=== PATIENT | female | born 1985 | race Caucasian/White ===

== ENCOUNTER → 2018-05-22 | Outpatient (CLI) | payer BC ==
[2018-05-22 13:08] LABS: Glucose 3 Hour, Gest 152 mg/dL
== END ==
LOC: LABWHC1 08:38
PROVIDERS: ATTEND Obstetrics & Gynecology
DX: O99.810 Abnormal glucose complicating pregnancy (principal); Z3A.00 Weeks of gestation of pregnancy not specified
CPT/HCPCS: 36415; 82951; 82952

== ENCOUNTER 2018-11-26 10:10 | Inpatient (IN) | payer BC ==
[2018-11-25 12:01] VITALS: BMI 36.9
[~2018-11-26 10:10] MED LIST: CITRIC ACID-SODIUM CITRATE 15 ML CUP PO ONE; LACTATED RINGERS 1,000 ML IV ONE
[2018-11-26] MEDS: LACTATED RINGERS 1,000 ML IV SCH ×2 (10:49→19:24)
[2018-11-26 11:46] LABS: Anisocytosis Slight; Basophils % (A) 0 %; Eosinophils # (A) 0.1 k/uL (0-0.7); Eosinophils % (A) 1 %; HCT 35.6 % (34.0-46.0); HGB 11.5 gm/dL (11.4-16.0); Lymphocytes # (A) 1.9 k/uL (1.0-4.8); Lymphocytes % (A) 17 %; MCH 25.9 pg (25.0-35.0); MCHC 32.3 g/dL (31.0-37.0); MCV 80.3 fL (80.0-100.0); Mean Platelet Volume 7.3; Monocytes # (A) 0.5 k/uL (0-1.0); Monocytes % (A) 5 %; Neutrophils # (A) 8.3 k/uL (1.3-7.7); Neutrophils % (A) 75 %; Platelet Count 198 k/uL (150-450); RBC 4.43 m/uL (3.80-5.40); RDW 16.7 % (11.5-15.5)
[2018-11-26] MEDS ORDERED: ePHEDrine SULFATE/0.9% NACL/PF 50 MG/5 ML SYRINGE IV ONE (11:56)
[2018-11-26] MEDS ORDERED: OXYTOCIN 10 UNIT/ML 1 ML VIAL ONE (11:56)
[2018-11-26] MEDS ORDERED: NALBUPHINE 10 MG/ML (1 ML AMP) ONE (11:56)
[2018-11-26] MEDS ORDERED: ONDANSETRON 4 MG/2 ML VIAL ONE (11:56)
[2018-11-26] MEDS ORDERED: MORPHINE SULFATE (PF) 0.3 MG/0.3 ML SYR ONE (11:56)
--- NOTE | 2018-11-26 12:58 | P.HPOB ---
History of Present Illness H&P Date: 11/26/18 Chief Complaint: history of section, left ovarian mass This is a 33 year old 3 para 2001 woman with an estimated due date of 12/03/2018 based on LMP consistent with a second trimester ultrasound. She has a history of previous low transverse sections and is scheduled for a repeat . Throughout her she has been followed for the presence of an approximately 8 cm complex left ovarian cyst. This has not been present on the exam or imaging in previous pregnancies. She also is a gestational diabetic with excellent control of her blood sugars using very occasional insulin. All testing has been reassuring. Obstetric history: Postdates vaginal delivery in 2013, primary section at 38 weeks in 2016, macrosomia and polyhydramnios. Laboratory data: Group B strep negative. Blood type A positive, antibody screen negative, rubella immune, VDRL nonreactive, hepatitis B surface antigen negative, HIV negative, abnormal glucose tolerance testing. Review of Systems All systems: negative Past Medical History Past Medical History: Hyperlipidemia Additional Past Medical History / Comment(s): POTS syndrome. 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 She has been asymptomatic throughout this . Gestational diabetes 05/2018,seasonal allergies History of Any Multi-Drug Resistant Organisms: None Reported Past Surgical History: Section Additional Past Surgical History / Comment(s): pt states she had her wisdom t eeth removed in 2001 Past Anesthesia/Blood Transfusion Reactions: Motion Sickness Additional Past Anesthesia/Blood Transfusion Reaction / Comment(s): no hx blood transfusion Past Psychological History: No Psychological Hx Reported Smoking Status: Never smoker Past Alcohol Use History: None Reported Past Drug Use History: None Reported - Past Family History Mother Family Medical History: Cancer Additional Family Medical History / Comment(s): basal cell skin cancer Medications and Allergies Home Medications Medication Instructions Recorded Confirmed Type Ferrous Sulfate [Feosol] 325 mg PO BID 01/20/16 11/26/18 History Pnv,Calcium 72/Iron/Folic Acid 1 each PO DAILY 01/20/16 11/26/18 History [ Plus Tablet] Allergies Allergy/AdvReac Type Severity Reaction Status Date / Time Penicillins Allergy Unknown Verified 11/26/18 10:25 Childhood Exam Vital Signs Temp Pulse Resp BP Pulse Ox 11/26/18 10:44 97.2 F L 144 H 18 128/86 98 Targeted physical exam is performed. This is a pleasant, visibly gravid, female in no obvious distress. HEENT exam is unremarkable. Her breathing is unlabored and her heart is a regular rate and rhythm. The abdomen is gravid with a fundal height of approximate 40 cm and is nontender. status is reassuring by external monitoring with no evidence of contraction activity. Category 1 heart tones. She has trace lower extremity edema and pelvic exam is deferred Results Result Diagrams: 11/26/18 10:40 Abnormal Lab Results - Last 24 Hours (Table) 11/26/18 Range/Units 10:40 WBC 11.0 H (3.8-10.6) k/uL RDW 16.7 H (11.5-15.5) % Neutrophils # 8.3 H (1.3-7.7) k/uL Assessment and Plan (1) Ovarian mass, left Current Visit: Yes Status: Acute Code(s): N83.8 - OTH NONINFLAMMATORY DISORD OF OVARY, FALLOP AND BROAD LIGMT SNOMED Code(s): 375883000 (2) History of delivery Current Visit: Yes Status: Acute Code(s): Z98.891 - HISTORY OF UTERINE SCAR FROM PREVIOUS SURGERY SNOMED Code(s): 462489121 (3) Gestational diabetes Current Visit: Yes Status: Acute Code(s): O24.419 - GESTATIONAL DIABETES MELLITUS IN , UNSP CONTROL SNOMED Code(s): 73859837 Plan: 33-year-old 3 para 2002 woman who is admitted for scheduled repeat low transverse section and removal of left ovarian cyst, possible left salpingo-oophorectomy. Risks benefits and alternatives to this procedure and removal of the ovarian cyst 7 review the patient and her in detail. She does understand that the ovarian cystectomy can be technically difficult in the study setting of hypervascularity of the term and the likely outcome is the left salpingo-nephrectomy. Patient understands these risks and consent is obtained.
[2018-11-26] MEDS ORDERED: NALOXONE 0.4 MG/ML 1 ML VIAL IV PRN (13:02)
[2018-11-26] MEDS ORDERED: ZOLPIDEM 5 MG TAB PO PRN (13:02)
[2018-11-26] MEDS ORDERED: diphenhydrAMINE 25 MG CAP PO PRN (13:02)
[2018-11-26] MEDS ORDERED: diphenhydrAMINE 50 MG/ML 1 ML VIAL IVP PRN (13:02)
[2018-11-26] MEDS ORDERED: METOCLOPRAMIDE 5 MG/ML 2 ML VIAL IVP PRN (13:02)
[2018-11-26] MEDS ORDERED: ONDANSETRON 4 MG/2 ML VIAL IVP PRN (13:02)
[2018-11-26] MEDS ORDERED: diphenhydrAMINE 50 MG CAP PO PRN (13:02)
[2018-11-26] MEDS ORDERED: ACETAMINOPHEN TAB 325 MG TAB PO PRN (13:02)
--- NOTE | 2018-11-26 13:03 | P.OP ---
Date of Procedure: 11/26/18 Preoperative Diagnosis: Intrauterine at 39 weeks gestation History of previous low transverse section Left ovarian cystic mass Postoperative Diagnosis: Same Procedure(s) Performed: Repeat low transverse section with left salpingo-oophorectomy oophorectomy Anesthesia: spinal Surgeon: Angela Landon Oem Sales Manager #1: Shantal Damian Estimated Blood Loss (ml): 500 IV fluids (ml): 1,400 Urine output (ml): 100 Pathology: other (Left fallopian tube and ovary) Condition: stable Disposition: floor Operative Findings: Female infant in the vertex presentation, nuchal cord 1, Apgars of 8 at 1 minute and 9 at 5 minutes weighing 7 lbs. 9 oz., 3450 g. Approximately 8 cm simple appearing left ovarian cyst. Normal-appearing right fallopian tube and ovary. Description of Procedure: After the patient was met preoperatively and all questions were answered, she was taken to the operating room where spinal anesthetic was administered without incident. She was then positioned, prepped and draped in the dorsal supine position with a leftward tilt. Diamond catheter was placed. After anesthetic was confirmed adequate, a low transverse skin incision was made following the pre- existing scar. This was carried down to the underlying fascia both sharply and with the electrocautery. The fascia was then incised in the midline and extended bilaterally with the Lucas scissors. The superior aspect of the fascial incision was elevated and the underlying rectus muscles dissected off sharply and with the electrocautery. The inferior aspect of the fascial incision was also elevated and the underlying rectus muscles dissected off sharply. The muscles were adherent in the midline. These were bluntly and the peritoneum was tented up with hemostats. The peritoneum was entered sharply with the Metzenbaum scissors. The peritoneal incision was extended inferiorly and superiorly with good visualization of the bladder. The bladder blade was placed. The vesicouterine peritoneum was identified, tented up and entered sharply, the bladder flap was created both sharply and digitally. A low transverse uterine incision was then made sharply and carried down to the underlying amniotic membranes. Membranes were ruptured and clear fluid was noted. The uterine incision was extended bilaterally bluntly. The 's head was delivered from the incision without difficulty. The nose and mouth were bulb suctioned. Nuchal cord 1 was reduced. The rest of the was delivered onto the field without difficulty. And cut and the was taken to the warmer. An intact, three-vessel cord placenta was then manually removed and the uterus was exteriorized. The uterus was cleared of all clot and debris. The uterine incision was delineated with Leonardo clamps. The uterine incision was then closed in a running locked fashion with 0 Vicryl suture. A second imbricating layer of the same stitch was placed. Attention was then turned to the left adnexa. An approximately 8-10 cm left ovary with the large simple cyst was appreciated. Left fallopian tube looked entirely normal. There was significant anticipated vascularity in the area. The decision was therefore made to perform complete LSO. Joanie clamp was placed across the infundibulopelvic ligament 2. Specimen was amputated with Lucas scissors. 0 Vicryl suture was utilized to doubly suture ligate the pedicle. This was inspected and hemostasis was noted. The uterus was then returned to the abdomen and the gutters were cleared of all clot and debris. Left adnexal surgical site was reinspected and noted to be hemostatic. The uterine incision was reinspected and Bovie electrocautery was utilized were necessary for hemostasis. The fascial edges, peritoneal edges and rectus muscles were inspected and Bovie electrocautery utilized were necessary for hemostasis. Rectus muscles were reapproximated in the midline with a [id number] of 0 Vicryl suture. The fascia was then closed in a running fashion with 0 Vicryl suture. The subcuticular tissue was copiously suction irrigated and Bovie electrocautery utilized were necessary for hemostasis. 3-0 Vicryl suture was utilized to reapproximate the subcuticular tissue. The skin was then closed in a subcutaneous fashion with 4-0 Vicryl suture. All counts reported to me as correct by the operating room staff at the end of the procedure. The patient received antibiotics preoperatively and Pitocin following cord clamp. Mother and infant were both transported from the room in stable condition.
[2018-11-26] MEDS ORDERED: OXYTOCIN 20 UNITS/1000 ML NS 1,000 ML IV SCH (13:15)
[2018-11-26] MEDS: KETOROLAC 30 MG/ML 1 ML VIAL IVP PRN (19:19)
[2018-11-26] MEDS: SENNOSIDES-DOCUSATE SODIUM 1 EACH TAB PO SCH (22:26)
[2018-11-27] MEDS: diphenhydrAMINE 50 MG/ML 1 ML VIAL IVP PRN ×2 (00:47→10:10)
[2018-11-27] MEDS: KETOROLAC 30 MG/ML 1 ML VIAL IVP PRN ×2 (04:00→10:01)
--- NOTE | 2018-11-27 06:33 | P.PN ---
Progress Note - Text Anesthesia POD 1629. Patient is status post section under spinal anesthesia with intra-thecal preservative free morphine tree 100 g. Mild pruritus, good post-op analgesia, and no headache or other complications.
[2018-11-27 07:38] LABS: Anisocytosis Slight; Basophils % (A) 0 %; Eosinophils # (A) 0.1 k/uL (0-0.7); Eosinophils % (A) 1 %; HCT 30.2 % (34.0-46.0); Lymphocytes # (A) 1.8 k/uL (1.0-4.8); Lymphocytes % (A) 14 %; MCH 26.5 pg (25.0-35.0); MCHC 32.1 g/dL (31.0-37.0); MCV 82.6 fL (80.0-100.0); Mean Platelet Volume 7.8; Monocytes # (A) 0.6 k/uL (0-1.0); Monocytes % (A) 4 %; Neutrophils # (A) 10.2 k/uL (1.3-7.7); Neutrophils % (A) 80 %; Platelet Count 189 k/uL (150-450); RBC 3.65 m/uL (3.80-5.40); RDW 17.5 % (11.5-15.5); WBC 12.7 k/uL (3.8-10.6)
[2018-11-27 07:40] LABS: HGB 9.7 gm/dL (11.4-16.0)
[2018-11-27] MEDS: SENNOSIDES-DOCUSATE SODIUM 1 EACH TAB PO SCH ×2 (08:25→19:33)
[2018-11-27] MEDS: LACTATED RINGERS 1,000 ML IV SCH ×2 (08:43)
--- NOTE | 2018-11-27 08:43 | P.PNOBGPC ---
Subjective - Subjective Principal diagnosis: POD 1 RCS Interval history: Patient is doing well on this postoperative day #1. She is ambulating and voiding without difficulty. She states her lochia is minimal. She denies concerns about pain control. She is breast-feeding without difficulty. She is tolerating a regular diet without nausea or vomiting. She does state she is noting some increased anxiety much like her first for which she took Zoloft and states her symptoms were well controlled. She is requesting to restart this medication. Patient reports: Reports appetite normal, Reports voiding normally, Reports pain well controlled, Reports ambulating normally : doing well, nursing well Objective - Vital Signs Latest vital signs: Vital Signs Temp Pulse Resp BP Pulse Ox 11/27/18 04:00 98.7 F 89 14 108/68 11/27/18 00:00 98.2 F 103 H 14 136/72 11/26/18 20:00 96.3 F L 103 H 14 130/65 11/26/18 15:20 96.9 F L 104 H 18 120/68 96 11/26/18 14:46 113 H 18 121/70 95 11/26/18 14:16 105 H 16 122/64 97 11/26/18 14:00 102 H 16 126/74 98 11/26/18 13:46 98 18 127/81 98 11/26/18 13:31 105 H 16 127/78 98 11/26/18 13:16 95 16 129/68 99 11/26/18 12:58 96.8 F L 89 18 120/61 100 11/26/18 10:44 97.2 F L 144 H 18 128/86 98 Intake and Output 11/26/18 11/27/18 11/27/18 22:59 06:59 14:59 Intake Total 490 Output Total 950 75 Balance -460 -75 Intake: Intake, IV Titration 240 Amount Oxytocin 20 Units/1000 ml 240 Ns 1,000 ml @ Per Protocol IV .Q0M [facility] Rx#: [id number] Oral 250 Output: Urine 900 75 Uretheral (Diamond) 500 Emesis 50 - Exam Extremities: Present: normal, edema Abdomen: Present: normal appearance, soft Incision: Present: normal, dry Uterus: Present: normal, firm - Labs Labs: Abnormal Lab Results - Last 24 Hours (Table) 11/26/18 11/27/18 Range/Units 10:40 06:35 WBC 11.0 H 12.7 H (3.8-10.6) k/uL RBC 3.65 L (3.80-5.40) m/uL Hgb 9.7 L D (11.4-16.0) gm/dL Hct 30.2 L (34.0-46.0) % RDW 16.7 H 17.5 H (11.5-15.5) % Neutrophils # 8.3 H 10.2 H (1.3-7.7) k/uL Assessment and Plan (1) Term Current Visit: Yes Status: Acute Code(s): Z34.90 - ENCNTR FOR SUPRVSN OF NORMAL , UNSP, UNSP TRIMESTER SNOMED Code(s): 71006647 (2) Ovarian mass, left Current Visit: Yes Status: Acute Code(s): N83.8 - OTH NONINFLAMMATORY DISORD OF OVARY, FALLOP AND BROAD LIGMT SNOMED Code(s): 469932008 (3) History of delivery Current Visit: Yes Status: Acute Code(s): Z98.891 - HISTORY OF UTERINE SCAR FROM PREVIOUS SURGERY SNOMED Code(s): 462190567 Plan: Patient is doing well post operatively. We'll plan to start Zoloft 50 mg daily per patient request as this worked well for her in the past. Breast pump prescription is given to the patient so this can be obtained prior to discharge. We'll continue routine postoperative care.
[2018-11-27] MEDS: SERTRALINE 50 MG TAB PO SCH (09:31)
[2018-11-27] MEDS: IBUPROFEN 600 MG TAB PO PRN (17:13)
[2018-11-27] MEDS: HYDROcodone/APAP 5-325MG 1 EACH TAB PO PRN (22:08)
[2018-11-28] MEDS: IBUPROFEN 600 MG TAB PO PRN ×2 (00:59→12:37)
[2018-11-28] MEDS: SENNOSIDES-DOCUSATE SODIUM 1 EACH TAB PO SCH (08:00)
[2018-11-28] MEDS: HYDROcodone/APAP 5-325MG 1 EACH TAB PO PRN (08:41)
[2018-11-28] MEDS: SERTRALINE 50 MG TAB PO SCH (08:41)
--- NOTE | 2018-11-28 09:45 | P.DS ---
Providers Date of admission: 11/26/18 10:10 Expected date of discharge: 11/28/18 Attending physician: Angela Landon Primary care physician: Denis Robledo MD - Discharge Diagnosis(es) (1) Ovarian mass, left Current Visit: Yes Status: Acute (2) History of delivery Current Visit: Yes Status: Acute (3) Gestational diabetes Current Visit: Yes Status: Acute Hospital Course: This is a 33 year old G3 now P3 women with previous LTCS who presents at 39 weeks for repeat LTCS and removal of left adnexal mass. She was found to have a complex appearing left ovarian cyst on rouitne imaging during the . T his measured between 7 and 10 cm. She was recommended for it to be removed at time of for pathology evaluation. FIndings at time of surgery were significant for female infant in vertex presentation with nuchal cord x 1 weighing 7 pounds 9 ounces and apgars of 8 and 9. Simple cystic left ovarian cyst, benign appearing was removed. See operative report for details. Her post operative course was unremarkable. On POD 1 vital signs were stable, labs wnl and incision well healing, no abnormal vaginal bleeding. By POD 2 she continued to well. Zoloft was started for PP anxiety. Incision well healing. Was discharged home with routine instructions for care and follow up. Procedures: LTCS with LSO Patient Condition at Discharge: Good Plan - Discharge Summary Discharge Rx Participant: No New Discharge Prescriptions: New Ibuprofen [Motrin] 600 mg PO Q6HR PRN tab PRN Reason: Mild Pain Or Fever >= 100.5 Acetaminophen Tab [Tylenol] 650 mg PO Q4HR PRN tab PRN Reason: Mild Pain Or Fever >= 100.5 Sertraline [Zoloft] 50 mg PO DAILY #30 tab No Action Pnv,Calcium 72/Iron/Folic Acid [ Plus Tablet] 1 each PO DAILY Ferrous Sulfate [Feosol] 325 mg PO BID Discharge Medication List Ferrous Sulfate [Feosol] 325 mg PO BID 01/20/16 [History] Pnv,Calcium 72/Iron/Folic Acid [ Plus Tablet] 1 each PO DAILY 01/20/16 [History] Acetaminophen Tab [Tylenol] 650 mg PO Q4HR PRN tab 11/28/18 [Rx] Ibuprofen [Motrin] 600 mg PO Q6HR PRN tab 11/28/18 [Rx] Sertraline [Zoloft] 50 mg PO DAILY #30 tab 11/28/18 [Rx] Follow up Appointment(s)/Referral(s): Angela Landon MD [STAFF PHYSICIAN] - 2 Weeks Discharge Disposition: HOME SELF-CARE
[2018-11-28 16:12] VITALS: BP 118/68; PULSE 82; RESP 18; TEMP 98.2
== END 2018-11-28 13:10 | disposition home or self-care (01) | DRG 785 ==
LOC: 4FBP 10:10
PROVIDERS: ADMIT Obstetrics & Gynecology; ATTEND Obstetrics & Gynecology
PROC: 0UT60ZZ Resection of Left Fallopian Tube, Open Approach (ICD-10-PCS; 2018-11-26)
PROC: 0UT10ZZ Resection of Left Ovary, Open Approach (ICD-10-PCS; 2018-11-26)
PROC: 10D00Z1 Extraction of Products of Conception, Low, Open Approach (ICD-10-PCS; principal; 2018-11-26 12:20)
DX: O34.211 Maternal care for low transverse scar from previous cesarean delivery (principal); O24.420 Gestational diabetes mellitus in childbirth, diet controlled; O69.81X0 Labor and delivery complicated by cord around neck, without compression, not applicable or unspecified; O34.83 Maternal care for other abnormalities of pelvic organs, third trimester; N83.292 Other ovarian cyst, left side; O99.284 Endocrine, nutritional and metabolic diseases complicating childbirth; E78.5 Hyperlipidemia, unspecified; O99.344 Other mental disorders complicating childbirth; F41.9 Anxiety disorder, unspecified; J30.2 Other seasonal allergic rhinitis; O99.52 Diseases of the respiratory system complicating childbirth; O99.72 Diseases of the skin and subcutaneous tissue complicating childbirth; L29.9 Pruritus, unspecified; Z37.0 Single live birth; Z3A.39 39 weeks gestation of pregnancy; Z80.8 Family history of malignant neoplasm of other organs or systems; Z88.0 Allergy status to penicillin
CPT/HCPCS: 85025; 86850; 86900; 86901; 88307